=== PATIENT | female | born 1945 | race Caucasian/White ===

== ENCOUNTER 2020-04-11 22:43 | Inpatient (IN) | payer MEDICARE, SELFPAY ==
--- NOTE | ~2020-04-11 | XR_ITS ---
EXAMINATION: XR shoulder RT min 2V, XR humerus RT EXAM DATE: 04/11/2020 23:44 INDICATION: Initial encounter following injury, with pain of the right humerus, shoulder. TECHNIQUE: The following right shoulder projections obtained: frontal , Grashey, and scapular Y view (4+ views). 2 projections right humerus. There are no prior studies for comparison. FINDINGS: Acute comminuted right humeral neck fracture with anterior displacement of the shaft. The h umeral head is in position. Acute, closed posttraumatic finding. The distal aspect of the humerus is unremarkable. Probable right lower rib fracture laterally, but this could be chronic. IMPRESSION: 1. Acute comminuted right humeral neck fracture, anterior displacement. 2. Right lower rib fracture laterally more likely chronic. Reviewed, dictated and finalized at location A. IMPRESSION: 1. Acute comminuted right humeral neck fracture, anterior displacement. 2. Right lower rib fracture laterally more likely chronic.
--- NOTE | ~2020-04-11 | CT_ITS ---
EXAMINATION: CT brain wo con, CT cervical spine wo con EXAM DATE: 04/11/2020 23:27 (accession [id number]), 04/11/2020 23:26 (accession [id number]) INDICATION: Fall, head injury. Neck pain. TECHNIQUE: Spiral CT of the head was performed without contrast. Axial, coronal and sagittal images were reviewed. Spiral CT of the cervical spine was performed without contrast. Axial images were rev iewed. Coronal and sagittal reformatted images were also reviewed. The dose-length product (DLP) fo r this examination was 681.00 (accession [id number]), 175.56 (accession [id number]) mGy-cm. The exposure was tailored according to patient size, and iterative reconstruction (ASIR) was used as additional dose reduction technique. Comparison is made to prior examination from 01/11/2018. FINDINGS: HEAD CT: There is no acute intraparenchymal hemorrhage. No evidence of intraparenchymal brain mass l esion. No evidence of acute infarction. There is mild periventricular and subcortical hypodensity, n onspecific but probably related to small vessel ischemic disease. There is moderate prominence of t he sulci and ventricles related to cerebral atrophy. There is intracranial carotid arteriosclerosis . There is no mass effect or midline shift. There is no obstructive hydrocephalus suspected. There are no extra-axial collections. There are no acute calvarial fractures. The orbits are unremarkabl e. Soft tissue is unremarkable. The visualized sinuses and mastoid air cells are well aerated. 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 There is osseous fusion of the odontoid to the anterior arch of C1. There a re no acute fractures identified. The vertebral bodies are aligned in the AP dimension. Vertebral bod y and disc heights are well-maintained. There is bulky mid cervical facet arthropathy. Paraspinal sof t tissue is unremarkable. IMPRESSION: 1. No acute intracranial findings or cervical fracture. 2. 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 3. Age-related intracranial findings. Reviewed, dictated and finalized at location A. IMPRESSION: 1. No acute intracranial findings or cervical fracture. 2. 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 3. Age-related intracranial findings.
--- NOTE | ~2020-04-11 | XR_ITS ---
EXAMINATION: XR chest 1V EXAM DATE: 04/11/2020 23:44 INDICATION: Fall, injury, right chest, shoulder pain. TECHNIQUE: Portable AP frontal chest x-ray was obtained. Comparison is made to prior examination from 08/16/2019. FINDINGS: There is aortic arteriosclerosis. No confluent consolidation, pneumothorax or pleural effus ion suspected. Mild hyperinflation. The cardiomediastinal silhouette is prominent but magnified on th is AP technique. Acute right humeral neck fracture. IMPRESSION: 1. No acute cardiopulmonary findings. 2. Acute right humeral neck fracture. Reviewed, dictated and finalized at location A.
--- NOTE | 2020-04-11 22:42 | ED.GENADULT ---
HPI - General Adult General Chief complaint: Fall Stated complaint: fall/ shoulder pain Source: patient and EMS Mode of arrival: EMS Limitations: no limitations History of Present Illness HPI narrative: Patient is a 74 yo female who presents for evaluation of shoulder pain following ground level fall. Pt ambulating from her bedroom to the bathroom with the use of a walker as she has a history of a right hip fracture s/p repair in July; pt states she may have lost her footing, but she is unsure. No prodromal symptoms. No chest pain, palpitations, shortness of breath. Patient is currently reporting aching right shoulder pain. She thinks she may have hit her head. She is denying any headache or neck pain. She also has a history of neck fracture that she is reporting. Patient reportedly was on the ground for about 2 hours until being able to crawl to get her phone per EMS. Patient transported via EMS in a cervical collar. Pt is right hand dominant. Related Data Home Medications Medication Instructions Recorded Confirmed Bevespi Aerosphere 2 puff INHALATION BID 08/16/19 02/14/20 albuterol sulfate 2 puff INHALATION Q8H PRN 08/16/19 02/14/20 carvedilol 12.5 mg PO BID 08/16/19 02/14/20 ezetimibe 10 mg PO DAILY 08/16/19 02/14/20 felodipine 5 mg PO DAILY 08/16/19 02/14/20 lisinopril 20 mg PO DAILY 08/16/19 02/14/20 pravastatin 40 mg PO HS 08/16/19 02/14/20 Allergies Allergy/AdvReac Type Severity Reaction Status Date / Time No Known Allergies Allergy Verified 12/20/19 08:17 Review of Systems Review of Systems: Narrative: CONSTITUTIONAL: Denies fever, chills, or sweats. EYES: Denies visual changes, redness, or discharge. ENT: Denies rhinorrhea, congestion, sore throat, or otalgia. CARDIOVASCULAR: Denies chest pain, palpitations, or edema. RESPIRATORY: Denies cough or dyspnea. GASTROINTESTINAL: Denies abdominal pain, nausea, vomiting, or diarrhea. GENITOURINARY: Denies dysuria or hematuria. SKIN: Denies rash or itching. MUSCULOSKELETAL: Denies back pain, reports right-sided shoulder pain, patient denies hip pain NEUROLOGIC: Denies headache, numbness, or weakness. [facility] Past Medical History Medical History Back pain Bronchitis Closed intertrochanteric fracture of right hip Surgical repair 08/17/2019 COPD (chronic obstructive pulmonary disease) Emphysema of lung HTN (hypertension) Hyperlipidemia Neck fracture Post-menopausal TIA (transient ischemic attack) Tobacco abuse Family History Family History Mother Rheumatoid arthritis Father Hypertension Sibling Hypertension Cancer Social History Social History Smoking packs per day: 1 Smoking cigarettes per day: 20.0 Years smoked: 55 Smoking pack-years: 55.00 Smoking status: Current every day smoker Second hand tobacco smoke exposure: Yes Alcohol intake: never Substance use: never Substance use type: does not use Additional occupation/education comments: adult daycare Gender identity (if verbalized by the patient): Female Spiritual care concerns: No Agree to blood products: No Exam Narrative: Exam Narrative: GENERAL: Awake, alert, conversant HEAD: Normocephalic, small hematoma to forehead, forehead abrasion EYES: PERRLA and EOMI. ENT: Nares clear, no rhinorrhea or epistaxis. Mucous membranes moist. Cervical collar in place. NECK: Supple. CHEST: No respiratory distress, breathing even and non labored HEART: Regular rate, sinus rhythm ABDOMEN:Non distended, non tender Thorax: No thoracic or lumbar tenderness EXTREMITIES: Decreased range of motion in the right shoulder due to pain. Ecchymosis over the upper forearm. Intact sensation median, ulnar, radial nerve distribution. Abrasion to right elbow. SKIN: Warm, dry, no rash. NEURO:No focal deficits. Alert and orie
[2020-04-11 22:48] VITALS: BP 170/81; PULSE 66; RESP 20; TEMP 36.6; O2SAT 98
--- NOTE | 2020-04-11 22:50 | ECG_ITS ---
Measurements Intervals [place] Rate: 65 P: 62 ND: 205 QRS: 13 QRSD: 68 T: 55 QT: 401 QTc: 417 Interpretive Statements SINUS RHYTHM NORMAL ECG Electronically Signed On 04-12-2020 7:42:51 CDT by Law Duarte D.O.
[2020-04-11] MEDS: ONDANSETRON INJ 4 MG/2 ML VIAL IV PUSH (23:05)
[2020-04-11] MEDS: SODIUM CHLORIDE 0.9% IV 500 ML 999 ML IV CONT (23:05)
[2020-04-11] MEDS: MORPHINE SULFATE 4 MG/ML INJ 2 MG IV PUSH (23:05)
[2020-04-11 23:06] LABS: Basophils Absolute Auto 0.1 K/mm3 (0.0-0.1); Basophils Percent Auto 0.6 % (0.2-1.2); Eosinophils Absolute Auto 0.2 K/mm3 (0-0.3); Eosinophils Percent Auto 1.4 % (0-4.4); Hematocrit 35.1 % (37.0-47.0); Hemoglobin 12.6 g/dL (12.0-15.0); Immature Granulocyte Absolute 0.04 K/mm3 (0.00-0.031); Immature Granulocyte Percent A 0.3 % (0-0.5); Lymphocytes Absolute Auto 1.19 K/mm3 (0.9-3.2); Lymphocytes Percent Auto 8.6 % (18.3-44.2); Mean Corpuscular HGB Conc 35.9 g/dl (32-36); Mean Corpuscular Hemoglobin 31.7 pg (26-34); Mean Corpuscular Volume 88.4 fl (80-100); Mean Platelet Volume 8.8 fl (7.4-10.4); Monocytes Percent Auto 7.5 % (2.6-8.5); Neutrophils Absolute Auto 11.3 K/mm3 (1.3-6.7); Neutrophils Percent Auto 81.6 % (45.5-73.1); Platelet Count Result 284 k/mm3 (150-375); Red Blood Count 3.97 M/mm3 (4.2-5.4); Red Cell Distribution Width 12.7 % (11.5-14.5); White Blood Count 13.8 K/mm3 (4.5-10.0)
[2020-04-11 23:16] LABS: INR 1.2; Prothrombin Time 14.4 Seconds (11.1-14.7)
[2020-04-11 23:19] LABS: Anion Gap 11 mmol/L (8-16); Blood Urea Nitrogen 9 mg/dL (7-17); Calcium 8.5 mg/dL (8.4-10.2); Carbon Dioxide 18 mmol/L (22-30); Chloride 93 mmol/L (98-107); Creatine Kinase 116 U/L (30-135); Estimated CRCL calculation 63 ml/min; Estimated Glomerular Filt Rate > 60; Glucose 108 mg/dL (65-105); Potassium 4.4 mmol/L (3.4-5.0); Sodium 122 mmol/L (137-145)
[2020-04-11 23:30] LABS: Troponin I < 0.012 ng/mL (0.000-0.034)
[2020-04-12] VITALS (8 sets, daily range): BP systolic 97–128; BP diastolic 47–61; PULSE 52–72; RESP 16–20; TEMP 36.2–36.4; O2SAT 90–97; BMI 18.8
[2020-04-12] MEDS: MORPHINE SULFATE 4 MG/ML INJ IV PUSH (00:01)
--- NOTE | 2020-04-12 00:57 | PM.IMHP ---
H&P: HPI History of Present Illness Date/Time: 04/12/20 00:57 Chief complaint: Humeral fracture, decreased mobility Narrative: This is a 74 year old female with known history of HTN and COPD who presented to the hospital after suffering a fall at home and complaining of right shoulder pain. She was ambulating to the bathroom with her walker when she suddenly lost her balance and fell onto her right side on the floor. She remembers hitting her forehead on the way down. She couldn't get up and laid on the ground for 2 hours before she was able to crawl to her phone and call EMS. The patient was evaluated in the ER tonight and found to have an acute comminuted right humeral neck fracture with anterior displacement. Ortho was consulted by ER provider and we were asked to admit her to the hospital for further treatment and possible placement as she is known to live alone. No other complaints. Review of Systems Review of Systems: All systems reviewed & are unremarkable except as noted in HPI and below PMFSH Past Medical History Medical History Back pain Bronchitis Closed intertrochanteric fracture of right hip Surgical repair 08/17/2019 COPD (chronic obstructive pulmonary disease) Emphysema of lung HTN (hypertension) Hyperlipidemia Neck fracture Post-menopausal TIA (transient ischemic attack) Tobacco abuse Surgical History Surgical History History of hysterectomy Family History Family History Mother Rheumatoid arthritis Father Hypertension Sibling Hypertension Cancer Social History Social History Smoking packs per day: 1.5 Smoking cigarettes per day: 30.0 Years smoked: 56 Smoking pack-years: 84.00 Smoking status: Current every day smoker Tobacco type: cigarettes Second hand tobacco smoke exposure: Yes Alcohol intake: current Drinks per week: 7 Substance use: never Substance use type: does not use Additional occupation/education comments: adult daycare Gender identity (if verbalized by the patient): Female Spiritual care concerns: No Agree to blood products: No Meds Home Medications and Allergies Home Medications Medication Instructions Recorded Confirmed Type Bevespi Aerosphere 2 puff INHALATION BID 08/16/19 04/12/20 History albuterol sulfate 2 puff INHALATION Q8H PRN 08/16/19 04/12/20 History carvedilol 12.5 mg PO BID 08/16/19 04/12/20 History ezetimibe 10 mg PO DAILY 08/16/19 04/12/20 History felodipine 5 mg PO DAILY 08/16/19 04/12/20 History lisinopril 20 mg PO DAILY 08/16/19 04/12/20 History acetaminophen [Tylenol 8 Hour] 650 mg PO Q8H PRN 04/12/20 04/12/20 History aspirin [Adult Low Dose Aspirin] 81 mg PO DAILY 04/12/20 04/12/20 History polyethylene glycol 3350 17 gm PO DAILY PRN 04/12/20 04/12/20 History [HealthyLax] Allergies Allergy/AdvReac Type Severity Reaction Status Date / Time No Known Allergies Allergy Verified 12/20/19 08:17 Vital Signs Vital Signs - 24 hr 04/11/20 22:48 04/12/20 00:00 Temperature 36.6 C Pulse Rate 66 62 Respiratory Rate 20 20 Blood Pressure 170/81 H 128/58 L Pulse Oximetry 98 96 Exam Const: General: cooperative, alert, awake and in distress moderate Nutritional Appearance: well nourished Orientation/consciousness: patient oriented x3 HENMT: Head: normal to inspection General nose exam: Normal external nose present Face and sinus: normal facial exam Mouth: Yes Normal oral and palatal mucosa present and Yes oropharynx normal Eyes: Pupils: Equal, round and reactive pupils present EOM: EOMs intact bilaterally Neck: Neck: supple and no JVD Thyroid: thyroid normal Lymphatic: lymphadenopathy not noted Resp: Effort & Inspection: normal respiratory effort Auscultation: clear to auscultation
--- NOTE | 2020-04-12 01:05 | PC.NURSE ---
Sling placed to R shoulder per MD Serrato order. PMS intact before and after placement of sling. MD Serrato also contacted and got verbal order with read back to remove C-collar. VSS. RN will continue to monitor.
[2020-04-12] MEDS: ONDANSETRON INJ 4 MG/2 ML VIAL IV PUSH (03:08)
--- NOTE | 2020-04-12 03:13 | ADMGEN ---
This patient, Ebony Barfield, was admitted to 3 [facility] Surg Room 306-01 at 0245. Patient/family oriented to hospital policies and general routines including ID bracelet, bed and alarms, visiting hours, pain management, procedures, bathroom and other care routines, personal items, smoking policy, room service/diet, and visiting hours. Valuables list has been completed. Information on how to activate the Rapid Response Team has been discussed. Patient/Family are encouraged to report perceived risks to care and to ask questions if they do not understand what they are told or what they should do.
[2020-04-12 05:11] LABS: Basophils Absolute Auto 0.1 K/mm3 (0.0-0.1); Basophils Percent Auto 0.6 % (0.2-1.2); Eosinophils Absolute Auto 0.1 K/mm3 (0-0.3); Eosinophils Percent Auto 0.7 % (0-4.4); Hemoglobin 10.9 g/dL (12.0-15.0); Immature Granulocyte Absolute 0.04 K/mm3 (0.00-0.031); Immature Granulocyte Percent A 0.4 % (0-0.5); Lymphocytes Absolute Auto 0.77 K/mm3 (0.9-3.2); Lymphocytes Percent Auto 7.5 % (18.3-44.2); Mean Corpuscular HGB Conc 35.2 g/dl (32-36); Mean Corpuscular Hemoglobin 31.5 pg (26-34); Mean Corpuscular Volume 89.6 fl (80-100); Mean Platelet Volume 9.3 fl (7.4-10.4); Monocytes Absolute Auto 1.1 K/mm3 (0.1-0.6); Monocytes Percent Auto 10.5 % (2.6-8.5); Neutrophils Absolute Auto 8.2 K/mm3 (1.3-6.7); Neutrophils Percent Auto 80.3 % (45.5-73.1); Platelet Count Result 268 k/mm3 (150-375); Red Blood Count 3.46 M/mm3 (4.2-5.4); Red Cell Distribution Width 12.8 % (11.5-14.5); White Blood Count 10.2 K/mm3 (4.5-10.0)
[2020-04-12 05:28] LABS: Anion Gap 9 mmol/L (8-16); Blood Urea Nitrogen 8 mg/dL (7-17); Calcium 8.2 mg/dL (8.4-10.2); Carbon Dioxide 19 mmol/L (22-30); Chloride 95 mmol/L (98-107); Estimated CRCL calculation 60 ml/min; Estimated Glomerular Filt Rate > 60; Glucose 104 mg/dL (65-105); Potassium 4.2 mmol/L (3.4-5.0); Sodium 123 mmol/L (137-145)
[2020-04-12] MEDS: EZETIMIBE 10 MG TABLET PO (08:40)
[2020-04-12] MEDS: FELODIPINE 5 MG TAB CR PO (08:40)
[2020-04-12] MEDS: lisinopriL 20 MG TABLET PO (08:41)
[2020-04-12] MEDS: carvediloL 12.5 MG TABLET PO ×2 (08:41→17:45)
[2020-04-12] MEDS: SODIUM CHLORIDE 0.9% IV 1,000 ML 100 ML IV CONT (08:44)
--- NOTE | 2020-04-12 13:23 | PM.IMPN ---
Subjective Date/time seen: 04/12/20 13:00 Objective Data Vital Signs Vital Signs: Vital Signs - 24 hr 04/11/20 22:48 04/12/20 00:00 04/12/20 01:15 Temperature 97.8 F Pulse Rate 66 62 61 Respiratory Rate 20 20 18 Blood Pressure 170/81 H 128/58 L 114/61 Pulse Oximetry 98 96 95 04/12/20 02:00 04/12/20 02:44 04/12/20 02:47 Temperature 97.2 F L Pulse Rate 64 72 52 L Respiratory Rate 18 18 16 Blood Pressure 98/56 L 107/60 104/55 L Pulse Oximetry 97 94 96 04/12/20 06:00 Temperature 97.3 F L Pulse Rate 64 Respiratory Rate 16 Blood Pressure 104/52 L Pulse Oximetry 95 Intake/Output Intake/Output: Intake & Output 04/09/20 04/10/20 04/11/20 04/12/20 23:59 23:59 23:59 23:59 Intake Total 500 Output Total 500 Balance 500 -500 Meds/Results Medications: Active Medications Generic Name Dose Route Start Last Admin Trade Name Freq PRN Reason Stop Dose Admin Acetaminophen 650 mg 04/12/20 04:39 Tylenol Tablet PO Q8H PRN Pain (Scale Score 1-3) Hydrocodone Bitart/Acetaminophen 1 tab 04/12/20 00:32 04/12/20 11:16 [place] 5-325 Mg PO 1 tab Q4H PRN Administration Pain Rated 4-6 Albuterol 2 puff 04/12/20 04:39 Proventil Hfa INHALATION Q8H PRN Shortness Of Breath Carvedilol 12.5 mg 04/12/20 09:00 04/12/20 08:41 Coreg PO 12.5 mg BID JAIMIE Administration Ezetimibe 10 mg 04/12/20 09:00 04/12/20 08:40 Zetia PO 10 mg DAILY JAIMIE Administration Felodipine 5 mg 04/12/20 09:00 04/12/20 08:40 Plendil PO 5 mg DAILY JAIMIE Administration Sodium Chloride 1,000 mls @ 100 mls/hr 04/12/20 08:30 04/12/20 08:44 Normal Saline Iv IV CONT 100 mls/hr .Q10H JAIMIE Administration Lisinopril 20 mg 04/12/20 09:00 04/12/20 08:41 Prinivil PO 20 mg DAILY JAIMIE Administration Non-Formulary Medication 2 puff 04/12/20 09:00 Glycopyrrolate-Formoterol [Bevespi Aerosphere] INHALATION 05/12/20 09:01 BID JAIMIE Ondansetron HCl 4 mg 04/12/20 00:32 04/12/20 03:08 Zofran Inj IV PUSH 4 mg Q4H PRN Administration Nausea Polyethylene Glycol 17 gm 04/12/20 04:39 Miralax PO DAILY PRN Constipation Radiology Results: ITS Impressions Cervical Spine CT 04/11/20 23:30 IMPRESSION: 1. No acute intracranial findings or cervical fracture. 2. 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 3. Age-related intracranial findings. Head CT 04/11/20 23:30 IMPRESSION: 1. No acute intracranial findings or cervical fracture. 2. 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 3. Age-related intracranial findings. Chest X-Ray 04/11/20 23:48 IMPRESSION: 1. No acute cardiopulmonary findings. 2. Acute right humeral neck fracture. Humerus X-Ray 04/11/20 23:50 IMPRESSION: 1. Acute comminuted right humeral neck fracture, anterior displacement. 2. Right lower rib fracture laterally more likely chronic. Shoulder X-Ray 04/11/20 23:50 IMPRESSION: 1. Acute comminuted right humeral neck fracture, anterior displacement. 2. Right lower rib fracture laterally more likely chronic. Labs Labs: Laboratory Results - last 24 hr 04/11/20 04/11/20 04/11/20 23:00 23:00 23:00 WBC 13.8 H RBC 3.97 L Hgb 12.6 D Hct 35.1 L MCV 88.4 MCH 31.7 MCHC 35.9 RDW 12.7 Plt Count 284 MPV 8.8 Immature Gran % (Auto) 0.3 Neut % (Auto) 81.6 H Lymph % (Auto) 8.6 L [place] % (Auto) 7.5 Eos % (Auto) 1.4 Baso % (Auto) 0.6 Lymph # (Auto) 1.19 [place] # (Auto) 1.0 H Eos # (Auto) 0.2 Baso # (Auto) 0.1 Abs Immat Gran (auto) 0.04 H Absolute Neuts (auto) 11.3 H Absolute Nucleated RBC 0.0 Nucleated RBC % 0.0 PT 14.4 INR 1.2 APTT 24.0 Sodium 122 L Potassium 4.4 Chloride 93
[2020-04-12 15:33] LABS: Sodium Urine Random 8 meq/L
--- NOTE | 2020-04-12 15:46 | PM.CNOR ---
Assessment and Plan Additional Plan patient is a 74-year-old female who came to the emergency room late last evening after falling at her home while she was walking to the bathroom with her walker before going to bed and she sustained a severe right proximal humerus fracture with 100% displacement of the shaft anteriorly and rather severe metaphyseal comminution and some some comminution of the medial proximal shaft. She had a severe right intertrochanteric hip fracture back in July of 2019 treated with internal fixation successfully by Dr. Solorzano. Since then she has been using the walker off and on. Her past medical history is significant for history of TIA, tobacco abuse, COPD and emphysema. On exam there is diffuse swelling and ecchymosis in the upper arm. The skin is intact. There is no swelling in the forearm wrist or hand. She denies any other injury besides the right shoulder. She has intact motor function and sensation the right hand and a 2+ radial artery pulse palpable. She is in an arm sling that has been slipping off her forearm. Impression Patient has severe osteoporosis I believe severely displaced humeral neck fracture with significant metaphyseal her do not think that this will do well with non operative treatment surgical treatment not be able to establish adequate fixation. Reverse total shoulder arthroplasty may consideration repairing this fracture should be done by someone with expertise with reverse total shoulder arthroplasty. I did speak with Dr. Landis who has expertise with this procedure however he would recommend given the severe comminution that this be treated by a high volume shoulder specialist. I will speak to the hospitalist about possibly transferring her to the shoulder group at [place]. I have discussed this with the patient in detail she is agreeable. History of Present Illness HPI Consult date: 04/12/20 Chief complaint: Humeral fracture, decreased mobility PMFSH Past Medical History Medical History Back pain Bronchitis Closed intertrochanteric fracture of right hip Surgical repair 08/17/2019 COPD (chronic obstructive pulmonary disease) Emphysema of lung HTN (hypertension) Hyperlipidemia Neck fracture Post-menopausal TIA (transient ischemic attack) Tobacco abuse Surgical History Surgical History History of hysterectomy Family History Family History Mother Rheumatoid arthritis Father Hypertension Sibling Hypertension Cancer Social History Social History Smoking packs per day: 1.5 Smoking cigarettes per day: 30.0 Years smoked: 56 Smoking pack-years: 84.00 Smoking status: Current every day smoker Tobacco type: cigarettes Second hand tobacco smoke exposure: Yes Alcohol intake: current Drinks per week: 7 Substance use: never Substance use type: does not use Additional occupation/education comments: adult daycare Gender identity (if verbalized by the patient): Female Spiritual care concerns: No Agree to blood products: No Meds Home Medications and Allergies Home Medications Medication Instructions Recorded Confirmed Type Bevespi Aerosphere 2 puff INHALATION BID 08/16/19 04/12/20 History albuterol sulfate 2 puff INHALATION Q8H PRN 08/16/19 04/12/20 History carvedilol 12.5 mg PO BID 08/16/19 04/12/20 History ezetimibe 10 mg PO DAILY 08/16/19 04/12/20 History felodipine 5 mg PO DAILY 08/16/19 04/12/20 History lisinopril 20 mg PO DAILY 08/16/19 04/12/20 History acetaminophen [Tylenol 8 Hour] 650 mg PO Q8H PRN 04/12/20 04/12/20 History aspirin [Adult Low Dose Aspirin] 81 mg PO DAILY 04/12/20 04/12/20 History polyethylene glycol 3350 17 gm PO DAILY PRN 04/12/20 04/12/20 History [HealthyLax] Allergies Allergy/AdvReac Type Sev
--- NOTE | 2020-04-12 16:48 | PM.TDS ---
Transfer Discharge Sum: Prov Provider Date of admission: 04/12/20 10:05 Primary care physician: Moe Morillo Admitting clinician: Alex Cabrera MD Consults: 04/12/20 00:36 Consult to Physician Routine Comment: Consulting Provider: Robles Blood Reason for consultation: Right humeral fracture Has provider been notified: Yes DS: Admitting Diagnosis Admitting Diagnosis Admitting Diagnosis: Humeral fracture, decreased mobility DS: Discharge Diagnosis Discharge Diagnosis (1) Closed fracture of neck of right humerus: Qualifiers: Encounter type: initial encounter Qualified Code(s): S42.211A - Unspecified displaced fracture of surgical neck of right humerus, initial encounter for closed fracture Code(s): S42.211A - Unspecified displaced fracture of surgical neck of right humerus, initial encounter for closed fracture Status: Acute Assessment and Plan: Date of Service 04/12/20 Ms. Barfield is a 74yo F with history of hypertension, COPD, hyperlipidemia, osteoporosis, previous TIA, ongoing tobacco use who presented to the ED for evaluation of right arm pain after a fall at home. She sustained a ground level fall 04/11/20 she was ambulating to the bathroom with her walker and suddenly lost her balance, fell onto her right side on the floor. She hit her forehead. Imaging has demonstrated 100% displaced, comminuted proximal right humeral neck fracture. She was evaluated by orthopedic surgery, Dr. Robles Blood, who determined she may require reverse total right shoulder arthroplasty and he is unable to perform this procedure. Dr. Blood recommends the patient be transferred to [place] for higher level of care given the severe displacement of this fracture. Dr. Clau Moore has accepted this patient in transfer to [facility]. She is hemodynamically stable for transfer. She is noted to have acute on chronic hyponatremia and is receiving IV normal saline. She sustained a right intertrochanteric hip fracture July 2019 and underwent ORIF right IT hip fracture 08/17/[address] Bart antunez at [facility]. Last Vital Signs Temp 97.6 F 04/12/20 14:00 Pulse 71 08/15/20 14:00 Resp 18 04/12/20 14:00 BP 108/48 L 04/12/20 14:51 Pulse Ox 90 04/12/20 14:00 (2) COPD (chronic obstructive pulmonary disease): Qualifiers: COPD type: unspecified COPD Qualified Code(s): J44.9 - Chronic obstructive pulmonary disease, unspecified Code(s): J44.9 - Chronic obstructive pulmonary disease, unspecified Status: Chronic Assessment and Plan: No acute respiratory distress. Tolerating room air. (3) HTN (hypertension): Qualifiers: Hypertension type: unspecified Qualified Code(s): I10 - Essential (primary) hypertension Code(s): I10 - Essential (primary) hypertension Status: Chronic Assessment and Plan: Stable maintained on her home lisinopril, carvedilol. (4) Hyponatremia: Code(s): E87.1 - Hypo-osmolality and hyponatremia Status: Chronic Assessment and Plan: Sodium 122 on arrival, 123 this morning. During hospitalization July 2019 sodium levels range from 127 to 130. Receiving gentle IV hydration with normal saline. Transfer Discharge Sum: Med Medications Active and Home Medications: Home Medications Bevespi Aerosphere 2 puff INHALATION BID 08/16/19 [History Confirmed 04/12/20] albuterol sulfate 2 puff INHALATION Q8H PRN 08/16/19 [History Confirmed 04/12/20] carvedilol 12.5 mg PO BID 08/16/19 [History Confirmed 04/12/20] ezetimibe 10 mg PO DAILY 08/16/19 [History Confirmed 04/12/20] felodipine 5 mg PO DAILY 08/16/19 [History Confirmed 04/12/20] lisinopril 20 mg PO DAILY 08/16/19 [History Confirmed 04/12/20] acetaminophen [Tylenol 8 Hour] 650 mg PO Q8H PRN 04/12/20 [H
[2020-04-12] MEDS: CALCIUM CARBONATE (TUMS) 500 MG (200 MG ELEMENTAL) PO (17:46)
== END 2020-04-12 19:00 | disposition short-term general hospital (02) | DRG 563 ==
LOC: ANHED 04-12 00:43 → ANH3MEDSUR 04-12 01:14
PROVIDERS: Physician Assistant; Admitting Provider Family Medicine; Emergency Provider Emergency Medicine; Visit Provider Internal Medicine
DX: S42.211A Unspecified displaced fracture of surgical neck of right humerus, initial encounter for closed fracture (principal); E87.1 Hypo-osmolality and hyponatremia; F17.210 Nicotine dependence, cigarettes, uncomplicated; J43.9 Emphysema, unspecified; I10 Essential (primary) hypertension; E78.5 Hyperlipidemia, unspecified; S00.81XA Abrasion of other part of head, initial encounter; W18.30XA Fall on same level, unspecified, initial encounter; M81.0 Age-related osteoporosis without current pathological fracture; Z86.73 Personal history of transient ischemic attack (TIA), and cerebral infarction without residual deficits
CPT/HCPCS: 36415; 70450; 71045; 72125; 73030; 73060; 80048; 82550; 84300; 84484; 85025; 85610; 85730; 93005; 96361; 96374; 96375; 96376; 99285; A4565; A9270; J2270; J2405; J7030; J7040

== ENCOUNTER 2020-06-24 13:30 | Outpatient (RCR) | payer MEDICARE, SELFPAY ==
[2020-05-26 14:35] VITALS: BP_SYST 95
--- NOTE | 2020-05-26 16:09 | PTOPEVAL ---
INITIAL PHYSICAL THERAPY EVALUATION and PLAN OF CARE Thank you for referring Ebony Barfield to [facility].? Ebony is scheduled to be seen for physical therapy? 2x/week for 4 weeks. Please review, sign, date and return this plan of care TYLOR. I agree with and certify that the following plan of care is medically necessary. Referring Physician Date Admitting Provider: Attending Provider: Moe Morillo, Referring Provider: *PT Outpatient Evaluation Start: 05/26/20 14:42 Freq: Status: Active Protocol: Document 05/26/20 14:35 FAYE (Rec: 05/26/20 16:09 FAYE [id number]) Therapy Assessment Status Assessment Status Assessment Status Evaluation Outpatient Past Medical History Past Medical History Source of Past Medical History Recalled from Previous Visit, Confirmed with Patient/Family Neurological History Hx Transient Ischemic Attacks (TIA) Yes Cardiovascular History Hx Cardiac Arrhythmia Yes: V-TACH Hx Cardiac Catheterization Yes Hx Hypercholesterolemia Yes Hx Hypertension Yes Respiratory History Hx Bronchitis Yes Hx Chronic Obstructive Pulmonary Disease Yes (COPD) Hx Emphysema Yes Hx Pneumonia Yes Gastrointestinal History Hx Gastrointestinal Disorders No Significant History Genitourinary History Hx Urinary Tract Infection Yes Musculoskeletal History Hx Back Injury Yes Hx Back Pain Yes Hx Fractures Yes: Neck, back, and R hip fracture,R humerus 2019 Hx Joint Replacement Yes: R hip July [address] Regine Solorzano Hx Orthopedic Surgery Yes: R hip 2018, R humerus 2019 Hx Osteoporosis Yes Hematological History Hx Hematological Disorders No Significant History Endocrine History Hx Endocrine Disorders No Significant History HEENT History Hx Tonsillectomy Yes Integumentary History Hx Psoriasis Yes Reproductive History Hx Hysterectomy Yes: Partial Hx Post Menopausal Yes Psychosocial History Hx Psychiatric Disorders No Significant History Anesthesia History Hx Anesthesia Reactions No Significant History Evaluation Information Problem Diagnosis R humeral fracture Onset April 11, 2020 Subjective Information Going to bathroom - off day - Query Text:As Reported By Patient/ grabbed walker, got to Family bathroom door - walker got caught on something, fell onto R side. Able to get back to
--- NOTE | 2020-06-12 13:12 | PCPTNOTE ---
Ebony called & cancelled scheduled appointment this date due to unknown reason - message left on voice mail.
[2020-06-24 13:45] VITALS: BP_SYST 100
--- NOTE | 2020-06-24 16:07 | PTOPEVAL ---
PHYSICAL THERAPY DISCHARGE SUMMARY Thank you for referring Ebony Barfield to [facility].? Ebony was seen for 8 visits in physical therapy. Progress was made towards goals, but they were not fully met. I agree with Ebony's discharge from physical therapy. Referring Physician Date Admitting Provider: Attending Provider: Moe Morillo, Referring Provider: *PT Outpatient Evaluation Start: 05/26/20 14:42 Freq: Status: Active Protocol: Document 06/24/20 13:45 FAYE (Rec: 06/24/20 14:41 FAYE [id number]) Therapy Assessment Status Assessment Status Assessment Status Discharge Evaluation Information Problem Subjective Information Ebony reports that her R Query Text:As Reported By Patient/ shoulder is about the same. Family Still has difficulty lying on R side - increased pain present. Rainy, colder weather is bothering all of her joints the last few days. Pain Assessment Timing of Pain Assessment Timing of Pain Assessment Assessment Pain Scale Pain Scale Used Numeric (1 - 10) Self Report Pain Assessment Right Shoulder(s) Reported Pain Level 2 Pain Description Aching,Sharp Lowest Pain Intensity 2 Greatest Pain Intensity 5 Pain Score Pain Score 2: Self Report Interventions Used Interventions Used By Clinicians Exercise,Heat,Ice,Mobilization ,Manual Therapy Techniques Upper Extremity Range of Motion Scapular/ Shoulder Range of Motion Right Shoulder Flexion - Active 92 Shoulder Flexion - Passive 110 Shoulder Extension - Active 65 Shoulder Abduction - Active 80 Shoulder Abduction - Passive 100 Shoulder Medial Rotation - Active 85 Shoulder Medial Rotation - Active L3 Query Text:Reach Behind the Back Shoulder Lateral Rotation - Passive 35 Shoulder Lateral Rotation - Active R side of neck Query Text:Reach Behind the Head Scapular/Shoulder Range of Motion ER in neutral - 75 Comments R scapular elevation with active flexion, abduction supine - 120 deg flexion passive, 120 deg abduction passive Upper Extremity Muscle Strength Testing Scapular/Shoulder Right Shoulder Flexion Strength 4 Good Shoulder Extension Strength 4+ Good + Shoulder Abduction Strength 3+ Fair + Shoulder Medial Rotation Strength 4+ Good + Shoulder Lateral Rotation Strength 3+ Fair + Shoulder Strength Comments testing done in mid range Rehab Teaching Rehab Teaching Teaching Topic Rehab Teaching Topic Components
== END 2020-06-25 14:29 | disposition home or self-care (01) ==
LOC: ANHPT 13:30
PROVIDERS: Visit Provider Internal Medicine
DX: M25.512 Pain in left shoulder (principal)
CPT/HCPCS: 97110; 97140; 97162

== ENCOUNTER 2022-10-21 17:35 | Emergency (ER) | payer MEDICARE, SELFPAY ==
--- NOTE | ~2022-10-21 | XR_ITS ---
EXAMINATION: XR hip RT 2V w AP pelvis DATE: 10/21/2022 19:58 INDICATION: Right hip pain. Fall. TECHNIQUE: An anteroposterior view of the pelvis and 2 views of right hip were obtained. COMPARISON: Radiographs 08/26/2020 FINDINGS: Bone alignment is normal. There is an oblique fracture of femoral diaphysis. The distal fra cture fragment demonstrates lateral and anterior displacement. There is internal fixation of proximal right femur. There is moderate osteoarthritis of the hips. IMPRESSION: 1. Oblique fracture of right femoral diaphysis. 2. Moderate osteoarthritis of the hips. Reviewed, dictated and finalized at location A. TRIC RANGE ASSEMBLER
--- NOTE | ~2022-10-21 | XR_ITS ---
EXAMINATION: XR wrist RT min 3V DATE: 10/21/2022 19:58 INDICATION: Right wrist pain. Fall. TECHNIQUE: 3 views of right wrist were obtained. COMPARISON: None. FINDINGS: There is a transverse fracture of distal radius with involvement of the distal radioulnar j oint. The distal fracture fragment demonstrates one shaft width dorsal displacement, shortening, and dorsal angulation. There is 43 degrees dorsal tilt of the distal articular surface. Partially visuali zed is osteoarthritis of many of the interphalangeal joints. IMPRESSION: 1. Transverse fracture of distal radius. Reviewed, dictated and finalized at location A. R GENERATOR SET OPERATOR
--- NOTE | ~2022-10-21 | XR_ITS ---
EXAMINATION: XR femur RT min 2V DATE: 10/21/2022 19:58 INDICATION: Fall. TECHNIQUE: 2 views of right femur on 5 radiographs were obtained. COMPARISON: None. FINDINGS: There is a spiral fracture of right femoral diaphysis. The distal fracture fragment demonst rates 10 mm lateral displacement and 17 mm anterior displacement. There is internal fixation of proxi mal right femur with antegrade intramedullary niranjan, distal interlocking screw, and femoral head/neck s crew. There is moderate right hip osteoarthritis. Osteopenia is noted. No knee joint effusion. IMPRESSION: 1. Spiral fracture of right femoral diaphysis. 2. Moderate right hip osteoarthritis. Reviewed, dictated and finalized at location A. RDS CLERK
--- NOTE | ~2022-10-21 | XR_ITS ---
EXAMINATION: XR chest 1V DATE: 10/21/2022 19:58 INDICATION: Fall. TECHNIQUE: A single frontal view of the chest was obtained. COMPARISON: Chest single view 04/11/2020 FINDINGS: There is mild scarring at the lung apices. No pleural effusion or pneumothorax. The heart s ize is normal. There is internal fixation of right humerus. IMPRESSION: 1. Mild scarring at the lung apices. Reviewed, dictated and finalized at location A. ETICS DIRECTOR
--- NOTE | ~2022-10-21 | XR_ITS ---
EXAMINATION: XR wrist RT 2V DATE: 10/21/2022 20:33 INDICATION: Distal right radius fracture status post reduction. TECHNIQUE: 2 views of right wrist were obtained. COMPARISON: Right wrist radiographs at 7:11 PM FINDINGS: There is a comminuted fracture of distal radius with involvement of the distal radioulnar j oint. The main distal fracture fragment demonstrates 8 mm dorsal displacement and dorsal angulation. There is 14 degrees dorsal tilt of the distal articular surface. There is mild osteoarthritis of firs t carpometacarpal joint. There is polyarticular osteoarthritis involving the interphalangeal joints. Cast material is noted. IMPRESSION: 1. Comminuted fracture of distal radius with improvement in alignment. Reviewed, dictated and finalized at location A. ING HOUSE HAND
[2022-10-21 17:35] VITALS: BP 136/76; PULSE 72; RESP 20; TEMP 36.7; O2SAT 95
--- NOTE | 2022-10-21 17:52 | ED.FALL ---
HPI - Fall General Chief Complaint: Fall Stated Complaint: glf rt femur/wrist pain Time Seen by Provider: 10/21/22 17:37 Source: patient and EMS Mode of arrival: EMS Limitations: no limitations History of Present Illness HPI Narrative: This is a 76 year old female that presents to the ER after a ground level fall today with right wrist and right hip pain. Reports she was going to leaf size picker a trash can lid and stood back up and pivoted and tripped and fell. Reports catching herself with her right wrist. Obvious deformity noted to the right wrist. Also reports right hip pain. Reports she can't straighten her leg due to pain. Denies hitting her head or loss of consciousness. Denies chest pain or shortness of breath. Related Data Home Medications Medication Instructions Recorded Confirmed albuterol sulfate 90 mcg/actuation 2 puff inhalation Q8H PRN 08/16/19 10/29/20 aerosol inhaler Shortness Of Breath carvedilol 12.5 mg tablet 12.5 mg PO BID 08/16/19 10/29/20 ezetimibe 10 mg tablet 10 mg PO DAILY 08/16/19 10/29/20 felodipine 5 mg tablet,extended 5 mg PO DAILY 08/16/19 10/29/20 release 24 hr glycopyrrolate 9 mcg-formoterol 2 puff inhalation BID 08/16/19 10/29/20 4.8 mcg HFA aerosol inhaler (Bevespi Aerosphere) lisinopril 20 mg tablet 20 mg PO DAILY 08/16/19 10/29/20 acetaminophen 650 mg 650 mg PO Q8H PRN Pain (Scale 04/12/20 10/29/20 tablet,extended release (Tylenol 8 Score 1-3) Hour) aspirin 81 mg tablet,delayed 81 mg PO DAILY 04/12/20 10/29/20 release (Adult Low Dose Aspirin) polyethylene glycol 3350 17 gram 17 gm PO DAILY PRN Constipation 04/12/20 10/29/20 oral powder packet (HealthyLax) Allergies Allergy/AdvReac Type Severity Reaction Status Date / Time No Known Allergies Allergy Verified 10/21/22 17:40 Review of Systems Review of Systems: CONSTITUTIONAL: Denies fever CARDIOVASCULAR: Denies chest pain RESPIRATORY: Denies dyspnea. GASTROINTESTINAL: Denies vomiting MUSCULOSKELETAL: Reports joint pain and myalgia. Denies back pain NEUROLOGIC: Denies numbness, or weakness. All systems reviewed & are unremarkable except as noted in HPI and below PMFSH Past Medical History Medical History (Updated 10/21/22 @ 20:47 by Jazmin Cortes PA-C) Back pain BMI less than 19,adult Bronchitis COPD (chronic obstructive pulmonary disease) Emphysema of lung HTN (hypertension) Hyperlipidemia Neck fracture Post-menopausal TIA (transient ischemic attack) Tobacco abuse Surgical History Surgical History (Updated 10/29/20 @ 14:06 by Rafa Solorzano MD) Displaced intertrochanteric fracture of right femur, initial encounter for closed fracture Surgical repair 08/17/2019 History of hysterectomy Family History Family History Mother Rheumatoid arthritis Father Hypertension Sibling Hypertension Cancer Social History Social History Smoking packs per day: 1.5 Smoking cigarettes per day: 30.0 Years smoked: 56 Smoking pack-years: 84.00 Smoking status: Current every day smoker Tobacco type: cigarettes Second hand tobacco smoke exposure: Yes Alcohol intake: current Drinks per week: 7 Substance use: never Substance use type: does not use Living arrangements: alone Occupation/Education: other Additional occupation/education comments: adult daycare Gender identity (if verbalized by the patient): Female Spiritual care concerns: No Agree to blood products: No Exam Narrative: GENERAL: Well-appearing, well-nourished, and in no acute distress. HEAD: Normocephalic, atraumatic. EYES: PERRLA and EOMI. ENT: Nares clear, no rhinorrhea or epistaxis. Mucous membranes moist. Oropharynx without tonsillar hypertrophy exudate or other lesions. Bilateral TMs pearly mcleod non-bulging NECK: Supple. No adenopathy or masses. No midline cervical spine tenderness CHEST: No respiratory
[2022-10-21] MEDS: MORPHINE SULFATE (*CRX) 2 MG/ML INJ IV PUSH (17:57)
[2022-10-21 18:18] VITALS: PULSE 66; RESP 24
[2022-10-21] MEDS: ALBUTEROL SULFATE NEB 2.5 MG/3 ML INH INHALATION (18:21)
[2022-10-21] MEDS: IPRATROPIUM BR 0.02% INH SOLN 0.5 MG/2.5 ML VIAL INHALATION (18:21)
[2022-10-21 18:32] VITALS: PULSE 68; RESP 20
[2022-10-21 18:55] LABS: Basophils Absolute Auto 0.1 K/mm3 (0.0-0.1); Basophils Percent Auto 0.7 % (0.2-1.2); Eosinophils Absolute Auto 0.1 K/mm3 (0-0.3); Eosinophils Percent Auto 1.3 % (0-4.4); Hematocrit 42.6 % (37.0-47.0); Hemoglobin 14.6 g/dL (12.0-15.0); Immature Granulocyte Absolute 0.05 K/mm3 (0.00-0.031); Immature Granulocyte Percent A 0.6 % (0-0.5); Immature Platelet Fraction Pct 2.2 % (0.9-11.2); Lymphocytes Absolute Auto 1.06 K/mm3 (0.9-3.2); Lymphocytes Percent Auto 12.7 % (18.3-44.2); Mean Corpuscular HGB Conc 34.3 g/dl (32-36); Mean Corpuscular Hemoglobin 31.1 pg (26-34); Mean Corpuscular Volume 90.8 fl (80-100); Mean Platelet Volume 9.5 fl (7.4-10.4); Monocytes Absolute Auto 0.6 K/mm3 (0.1-0.6); Monocytes Percent Auto 6.6 % (2.6-8.5); Neutrophils Absolute Auto 6.5 K/mm3 (1.3-6.7); Neutrophils Percent Auto 78.1 % (45.5-73.1); Platelet Count Result 214 k/mm3 (150-375); Red Blood Count 4.69 M/mm3 (4.2-5.4); Red Cell Distribution Width 12.9 % (11.5-14.5); White Blood Count 8.4 K/mm3 (4.5-10.0)
[2022-10-21 18:58] VITALS: BP 127/58; PULSE 64; RESP 12; O2SAT 98
[2022-10-21 19:18] LABS: Anion Gap 8 mmol/L (8-16); Blood Urea Nitrogen 9 mg/dL (7-17); Carbon Dioxide 20 mmol/L (22-30); Chloride 97 mmol/L (98-107); Estimated CRCL calculation 73 ml/min; Estimated Glomerular Filt Rate > 60; Glucose 119 mg/dL (65-110); Potassium 4.9 mmol/L (3.4-5.0); Sodium 125 mmol/L (137-145)
[2022-10-21 19:30] LABS: Platelet Estimate Adequate (Adequate); Schistocytes None Seen (NORMAL)
[2022-10-21 19:42] LABS: Influenza A QL RT-PCR Negative (Negative); Influenza B QL RT-PCR Negative (Negative); SARS-CoV-2 RNA PCR Negative
--- NOTE | 2022-10-21 19:42 | ECG_ITS ---
Measurements Intervals Tillar Rate: 70 P: 78 NM: 178 QRS: -6 QRSD: 78 T: 53 QT: 407 QTc: 441 Interpretive Statements SINUS RHYTHM WITHIN NORMAL LIMITS COMPARED TO ECG 04/11/2020 23:04:31 NO SIGNIFICANT CHANGES Electronically Signed On 10-22-2022 15:12:47 BRICK PAVING CHECKER by Ayaz Kiser M.D.
[2022-10-21] MEDS: SODIUM CHLORIDE 0.9% IV 500 ML 999 ML IV CONT (19:50)
--- NOTE | 2022-10-21 20:01 | PC.NURSE ---
Katerine, daughter: [phone]
[2022-10-21] MEDS: fentaNYL CITRATE INJ (*CRX) 100 MCG/2 ML VIAL 50 MCG IV PUSH ×3 (20:05→22:16)
[2022-10-21 22:59] VITALS: BP 131/69; PULSE 77; RESP 18; TEMP 36.6; O2SAT 99
== END 2022-10-21 23:00 | disposition short-term general hospital (02) ==
PROVIDERS: Emergency Provider Physician Assistant
DX: S52.591A Other fractures of lower end of right radius, initial encounter for closed fracture (principal); S72.341A Displaced spiral fracture of shaft of right femur, initial encounter for closed fracture; Z20.822 Contact with and (suspected) exposure to COVID-19; J43.9 Emphysema, unspecified; I10 Essential (primary) hypertension; E78.5 Hyperlipidemia, unspecified; F17.210 Nicotine dependence, cigarettes, uncomplicated; Z86.73 Personal history of transient ischemic attack (TIA), and cerebral infarction without residual deficits; Z90.710 Acquired absence of both cervix and uterus; Z79.82 Long term (current) use of aspirin; M16.0 Bilateral primary osteoarthritis of hip; W01.0XXA Fall on same level from slipping, tripping and stumbling without subsequent striking against object, initial encounter
CPT/HCPCS: 25560; 25605; 29505; 36415; 71045; 73100; 73110; 73502; 73552; 80048; 85025; 85055; 87636; 93005; 94640; 96361; 96365; 96375; 96376; 99285; J0131; J2270; J3010; J7040